=== PATIENT | male | born 1990 | race Hispanic/Latino ===

== ENCOUNTER 2017-04-15 13:43 | Emergency (ER) | payer OTHER ==
[~2017-04-15 13:43] MED LIST: BENTYL10 M1 PO
== END 2017-04-15 14:30 | disposition admitted as inpatient to this hospital (09) ==
LOC: ERH 13:43
DX: S81.811A Laceration without foreign body, right lower leg, initial encounter (principal)

== ENCOUNTER 2018-07-16 14:02 | Inpatient (IN) | payer OTHER ==
[~2018-07-16] VITALS: Ht 167.6 cm; Wt 64.0 kg
--- NOTE | 2018-07-16 14:51 | ED GENERAL ADULT ---
History of Present Illness General Chief Complaint: General Adult Stated Complaint: +ND, -V, WEAKNESS X 2DAYS Source: patient, old records, friend Exam Limitations: no limitations Vital Signs & Intake/Output Vital Signs & Intake/Output Vital Signs Date Time Temp Pulse Resp B/P B/P Pulse O2 O2 Flow FiO2 Mean Ox Delivery Rate 07/16 2153 99.4 87 20 144/89 98 Room Air 07/16 1905 98.7 89 18 134/73 98 Room Air 07/16 1631 98.9 99 18 128/79 99 Room Air Room Air 07/16 1408 99.9 104 17 128/91 96 Room Air ED Intake and Output 07/17 0000 07/16 1200 Intake Total 1465 Output Total Balance 1465 Intake, IV 1225 Intake, Oral 240 Number 1 Bowel Movements Patient 141 lb Weight Weight Reported by Patient Measurement Method Allergies Coded Allergies: lactose (LACTOSE INTOLERANT 07/16/18) Reconcile Medications No Known Home Medications Triage Note: PT TO ED WITH C/O GEN BODY ACHES, FEVERS/CHILLS, MID ABD PAIN, INTERMITTENT NAUSEA X 3 DAYS. Triage Nurses Notes Reviewed? yes HPI: This is a 27-year-old male with history of recurrent diarrhea of unclear etiology who presents to the emergency department with about 10 days of loose stool. Patient denies any bloody component today or mucus. He states that he has been previously worked up with endoscopy and colonoscopy with no clear diagnosis. He follows with Dr. Musa of gastroenterology. He denies any recent food changes or suspicious foods, travel, sick contacts. He has some epigastric discomfort, nausea with no vomiting. He has been using Pepto-Bismol at home with minimal relief. He has considered using Imodium but has not tried it yet. He has no history of belly surgery. He denies fever, chills, shortness of breath, chest pain, dysuria or frequency, flank pain. Patient states that about 4 weeks ago he was treated with a course of antibiotics for a "spider bite". He is not sure which antibiotic he was treated with. (Jaden DONOHUE,Jose Juan) Past History Travel History Traveled to [place] past 21 day No Medical History Any Pertinent Medical History? see below for history Neurological: NONE EENT: NONE Cardiovascular: NONE Respiratory: NONE Gastrointestinal: NONE Hepatic: NONE Renal: NONE Musculoskeletal: NONE Psychiatric: NONE Endocrine: NONE Blood Disorders: NONE Cancer(s): NONE TOE LASTER/Reproductive: NONE Surgical History Surgical History: non-contributory Psychosocial History What is your primary language Jamaican Tobacco Use: Never used Family History Hx Contributory? No (Jose Juan Stanley MD) Review of Systems Review of Systems Constitutional: Reports: no symptoms. EENTM: Reports: no symptoms. Respiratory: Reports: no symptoms. Cardiovascular: Reports: no symptoms. GI: Reports: see HPI. Genitourinary: Reports: no symptoms. Musculoskeletal: Reports: no symptoms. Skin: Reports: no symptoms. Neurological/Psychological: Reports: no symptoms. Hematologic/Endocrine: Reports: no symptoms. (Jose Juan Stanley MD) Physical Exam Physical Exam General Appearance: well developed/nourished, no apparent distress, alert, awake , comfortable, thin Comments: Well-appearing young man in no acute distress. HEENT exam within normal limits, cardiopulmonary exam within normal limits, abdominal exam significant only for mild tenderness to deep palpation in the epigastric region. Otherwise nondistended, nontender with normal bowel sounds. Rectal exam deferred. exam within normal limits. Legs and arms within normal limits with intact and non-tachycardic distal pulses. Core Measures ACS in differential dx? No CVA/TIA Diagnosis: No Sepsis Present: No Sepsis Focused Exam Completed? No (Jose Juan Stanley MD) Progress Differential Diagnoses I considered the following diagnoses in my evaluation of the patient: Clinically suspect IBS in this patient based on exam, history, and presentation. Also, very likely could be viral gastroenteritis. Very low suspicion for appendicitis in this patient given exam, and presentation. Could be Clostridium difficile given recent antibiotic use. Will send C. difficile study. Lower suspicion for Giardia or other parasitic infection, though will send stool cultures. Low suspicion for severe metabolic derangement or dehydration given exam and vital signs. Plan of Care: Orders Procedure Date/time Status Regular Diet 07/17 B Active CBC WITHOUT DIFFERENTIAL 07/17 600 Active BASIC ELECTROLYTES PLUS BUN&CR 07/17 600 Active Lab Add-on Test 07/17 UNK Active Weight 07/16 2028 Complete Vital Signs 07/16 2028 Complete Teach/Educate 07/16 2028 Active Pain Treatment and Response 07/16 2028 Active Nutritional Intake, Monitor 07/16 2028 Active Isolation 07/16 2028 Active Intake & Output 07/16 2028 Complete Patient Care Conference 07/16 2028 Active Activity/Ambulation 07/16 2028 Active Pathway - chart 07/16 1956 Active House Staff 07/16 1956 Active Patient Data 07/16 1956 Active Code Status 07/16 1956 Active Patient Data 07/16 1843 Active Admit to inpatient 07/16 1819 Active Vital Signs 07/16 1819 Active Code Status 07/16 1819 Complete CULTURE,STOOL 07/16 1549 Active OVA AND PARASITE ANTIGENS 07/16 1549 Active C.DIFFICILE 07/16 1549 Active LIPASE 07/16 1549 Complete COMPREHENSIVE METABOLIC PANEL 07/16 1549 Complete CBC WITHOUT DIFFERENTIAL 07/16 1549 Complete Intake & Output 07/16 1519 Active VTE Mechanical Prophylaxis 07/16 UNK Active Vital Signs 07/16 UNK Complete Activity/Ambulation 07/16 UNK Active Current Medications Sig/Brad Start time Last Medication Dose Stop Time Status Admin Enoxaparin Sodium 40 MG DAILY 07/17 0900 AC (Lovenox) Acetaminophen 650 MG Q6P PRN 07/16 2000 AC (Tylenol) Ondansetron HCl 4 MG Q6P PRN 07/16 2000 AC (Zofran) Oxycodone/ 2 TAB Q6P PRN 07/16 2000 AC Acetaminophen (Percocet) Sodium Chloride 1,000 ML Q13H 07/16 2000 AC 07/16 (Normal Saline 0.9%) 07/17 Laboratory Tests 07/16/18 1554: Anion Gap 11, Estimated GFR > 60, BUN/Creatinine Ratio 11.1, Glucose 89, Calcium 9.5, Total Bilirubin 0.6, AST 26, ALT 32, Alkaline Phosphatase 64, Total Protein 8.0, Albumin 4.8, Globulin 3.2, Albumin/Globulin Ratio 1.5, Lipase 65, CBC w Diff MAN DIFF ORDERED, RBC 4.92, MCV 87.3, MCH 29.7, MCHC 34.0, RDW 12.1, MPV 9.6, Gran % 23.6 L, Lymphocytes % 31.7, Monocytes % 43.1 H, Eosinophils % 1.1, Basophils % 0.5, Absolute Granulocytes 0.4 L, Segmented Neutrophils 23 L, Band Neutrophils 3, Absolute Lymphocytes 0.5 L, Lymphocytes 40, Monocytes 31 H, Absolute Monocytes 0.7 H, Eosinophils 3, Absolute Eosinophils 0, Absolute Basophils 0, Platelet Estimate VERIFIED BY SMEAR, Normocytic RBCs VERIFIED, Normochromic RBCs VERIFIED, Fld Total RBCs Counted 100 Microbiology 07/16 1739 STOOL: Cryptosporidium Antigen - RECD 07/16 1739 STOOL: Giardia Antigen (AIDEE) - RECD 07/16 170 STOOL: Clostridium difficile Toxin A & B - RECD 07/16 1705 STOOL: Stool Culture - RECD Plan for CMP, CVC, lipase, stool studies, IV fluids, Zofran, p.o. challenge, likely discharge home with plan to follow-up with Dr. Musa. Labs reveal normal chemistry panel but a very low ANC, less than 500. Patient has no known risk factors for immunosuppression. Could be shigellosis. Lower suspicion for Anaplasma. Given degree of neutropenia, will place on neutropenic precautions, admit for further workup. Patient remains hemodynamically stable while in the emergency department. Abdominal exam remains benign. Initial ED EKG: none (Jose Juan Stanley MD) Departure Departure Time of Disposition: 1823 Disposition: STILL A PATIENT Condition: Stable Clinical Impression Primary Impression: Neutropenia Secondary Impressions: Diarrhea Referrals: Rosa Wallis APRN (PCP/Family) Departure Forms: Customer Survey General Discharge Information Prescriptions: Current Visit Scripts No Known Home Medications Admission Note Spoke With: Wes Gordon MD Documentation of Exam: Documentation of any treatments & extenuating circumstances including Concerns Regarding Discharge (functional status, medication knowledge or non-compliance, living conditions, etc.) that warrant an admission rather than observation: Repeat CBC, neutropenic precautions, stool studies, close monitoring. Possible IV antibiotics. (Jose Juan Stanley MD) Resident Co-Sign Statement Statement: ED Attending supervision documentation- I saw and evaluated the patient. I have also reviewed all the pertinent lab results and diagnostic results. I agree with the findings and the plan of care as documented in the Resident's documentation. x I have reviewed the ED Record and agree with the Resident's documentation. [] Additions or exceptions (if any) to the Resident's note and plan are summarized below: [] (Juancarlos Christensen MD) Critical Care Note Critical Care Note Critical Care Time: non-applicable (Jose Juan Stanley MD)
[2018-07-16 16:03] LABS: ABSOLUTE BASOPHIL COUNT 0 /CUMM (0.0-0.2); ABSOLUTE EOSINOPHIL COUNT 0 /CUMM (0.0-0.7); ABSOLUTE GRANULOCYTE CT 0.4 /CUMM (1.4-6.5); ABSOLUTE LYMPH COUNT 0.5 /CUMM (1.2-3.4); ABSOLUTE MONOCYTE COUNT 0.7 /CUMM (0.10-0.60); BASOPHIL % 0.5 % (0.0-2.0); EOSINOPHIL % 1.1 % (0-5); HEMATOCRIT 42.9 % (42-52); MEAN CORPUSCULAR HGB 29.7 PG (27.0-31.0); MEAN CORPUSCULAR VOLUME 87.3 FL (80.0-94.0); MEAN PLATELET VOLUME 9.6 FL (7.4-10.4); PLATELET COUNT 178 /CUMM (130-400); RBC DISTRIBUTION WIDTH 12.1 % (11.5-14.5); RED BLOOD CELL CT 4.92 /CUMM (4.70-6.10); WHITE BLOOD CELL COUNT 1.7 /CUMM (4.8-10.8)
[2018-07-16 16:38] LABS: GRANULOCYTE % 23.6 % (42.2-75.2)
--- NOTE | 2018-07-16 19:56 | History & Physical ---
Kera Lock 07/16/181954: General Information and HPI MD Statement: I have seen and personally examined RAMON HONEYCUTT and documented this H&P. The patient is a 27 year old M who presented with a patient stated chief complaint of []. Source of Information: patient Exam Limitations: no limitations History of Present Illness: 27 year old male with PMH GI symptoms s/p endoscopy by Dr. Musa showing nonerosive gastritis in 2010 presenting with 10 day history of nausea and diarrhea. Patient denies any vomiting. He states the diarrhea started all of the sudden and has about 5-10 episodes of non bloody stool per day. He states over the past two days he has experienced increasing fatigue and decided to come to the hospital. He denies any sick contacts. Of note: 4 weeks ago he sustained a 'spider bite' resulting in right elbow swelling and erythema. He went to see his PCP and was given Keflex 500mg. He took this for about 2-3 days and then discontinued due to diarrhea onset and rash resolution. He states he was feeling well until about 10 days ago when the new sx appeared. He tried taking Pepto-bismol with minimal relief. Allergies/Medications Home Med list No Known Home Medications Past History Travel History Traveled to [place] past 21 day No Medical History Neurological: NONE EENT: NONE Cardiovascular: NONE Respiratory: NONE Gastrointestinal: NONE Hepatic: NONE Renal: NONE Musculoskeletal: NONE Psychiatric: NONE Endocrine: NONE Blood Disorders: NONE Cancer(s): NONE ASSISTANT SOFTBALL COACH/Reproductive: NONE Isolation History: Neutropenic precautions Surgical History Surgical History: non-contributory Past Family/Social History Psychosocial History Where do you live? Home Who Do You Live With? self Services at Home: None Smoking Status: Never Smoked ETOH Use: occasional use Illicit Drug Use: denies illicit drug use Review of Systems Review of Systems Constitutional: Reports: chills, weakness. Denies: diaphoresis, fever. EENTM: Reports: no symptoms. Cardiovascular: Reports: no symptoms. Respiratory: Reports: no symptoms. GI: Reports: bloating, diarrhea, nausea. Genitourinary: Reports: no symptoms. Musculoskeletal: Reports: no symptoms. Skin: Reports: no symptoms. Exam & Diagnostic Data Last 24 Hrs of Vital Signs/I&O Vital Signs Date Time Temp Pulse Resp B/P B/P Pulse O2 O2 Flow FiO2 Mean Ox Delivery Rate 07/16 2153 99.4 87 20 144/89 98 Room Air 07/16 1905 98.7 89 18 134/73 98 Room Air 07/16 1631 98.9 99 18 128/79 99 Room Air Room Air 07/16 1408 99.9 104 17 128/91 96 Room Air Intake & Output 07/17 0800 07/17 0000 07/16 1600 Intake Total 465 1000 Output Total Balance 465 1000 Intake, IV 225 1000 Intake, Oral 240 Number 1 Bowel Movements Patient 141 lb 142 lb Weight Weight Reported by Patient Reported by Patient Measurement Method Physical Exam General Appearance Alert, Oriented X3, Cooperative, No Acute Distress Skin No Rashes Skin Temp/Moisture Exam: Warm/Dry HEENT Atraumatic, PERRLA Neck Supple Cardiovascular Regular Rate, Normal S1, Normal S2, No Murmurs Lungs Clear to Auscultation Abdomen Normal Bowel Sounds, Soft, No Tenderness Extremities No Edema, Normal Pulses Assessment/Plan Assessment: 27 year old male with PMH GI symptoms s/p endoscopy by Dr. Musa showing nonerosive gastritis in 2010 presenting with 10 day history of nausea and diarrhea. Patient denies any vomiting. He states the diarrhea started all of the sudden and has about 5-10 episodes of non bloody stool per day. He states over the past two days he has experienced increasing fatigue and decided to come to the hospital. Work up in ED found patient to be neutropenic 1.7. Patient to be admitted to the general medicine service for further care of the following: Problem List: 1. Neutropenia 1.7 2. Diarrhea Admission Data: VS T99.9 P104 RR17 BP128/91 Sat96%RA Labs WBC 1.7 H/H 14.6/42.9 Plt 178 BUN/Cr 10/0.9 Received 1L NS in ED #Neutropenia-possible 2/2 tick borne illness as patient had unknown 'bite' to Right elbow with rash 4 weeks ago vs HIV infection -neutropenic precautions -tick panel -HIV -continue to monitor #Diarrhea-infectious vs viral -stool ova/parasite -C-diff antigen -IV fluid hydration DVT prophylaxis: Lovenox/ALPS/ambulation As Ranked By This Provider Problem List: 1. Diarrhea 2. Neutropenia Core Measures/Misc (08/15) Acute Coronary Syndrome ACS Diagnosis: No Congestive Heart Failure Congestive Heart Failure Diagnosis No Cerebrovascular Accident CVA/TIA Diagnosis: No VTE (View Protocol) VTE Risk Factors Acute Medical Illness No Mechanical VTE Prophylaxis d/t N/A MechProphylax Ordered No VTE Pharm Prophylaxis d/t NA PharmProphylax ordered Sepsis (View protocol) Sepsis Present: No If YES complete Sepsis Event Note If YES complete Sepsis Event Note Lalo Pinedo 07/17/18 0445: Core Measures/Misc (08/15) Sepsis (View protocol) If YES complete Sepsis Event Note If YES complete Sepsis Event Note Resident Review Statement Resident Statement: examined this patient, discussed with fashion buying internship, agreed with fashion buying internship, discussed with family, reviewed EMR data (avail), discussed with nursing , discussed with case mgmt, reviewed images, amended to note Other Findings: This is a 27-year-old male with past medical history significant for GI problems status post endoscopy and colonoscopy by Dr. Musa presenting to the hospital with 10 day history of diarrhea. Patient reports that he has GI issues in the past, follow Dr. Musa, status post EGD/COLONO, found to have nonerosive gastritis. Patient reports 10 day history of diarrhea, loose, watery, nonbloody 3-5 bowel movements per day. He denies any abdominal pain. However reports some discomfort. Denies nausea, vomiting. He denies sick contacts or travel history. Of note he had spider bite 4 weeks ago, he was given oral antibiotics Keflex. He tried taking Pepto-bismol with minimal relief. Denies any fever, chills, Alternating bowel movements, nausea, vomiting, abdominal pain, chest pain, palpitations, short of breath. Denies smoking, alcohol abuse, illicit drug abuse. -- VS T99.9 P104 RR17 BP128/91 Sat96%RA Labs WBC 1.7 H/H 14.6/42.9 Plt 178 BUN/Cr 10/0.9 Received 1L NS in ED - 1. Neutropenia Patient presented with ongoing diarrhea for 10 days. Denied any fever, chills. No recent tick bites. He was found to have WBC count 1.7, with absolute neutrophil count less than 500. He is immunocompetent. His possible causes of neutropenia includes rickettsial, bacterial infections, HIV. He does not take any medications or immunosuppressants at home that may cause neutropenia. No rheumatologic disorders were found. * ANC 400 * Admitted to [facility] * Neutropenic precautions * No source of infection was found so far * Monitored off from antibiotics * Follow-up Anaplasma * Follow-up HIV * Continue to monitor WBC count * Peripheral blood smear * Consider hematology consult 2. Diarrhea Most likely viral. C. difficile pending Follow-up stool cultures Follow-up HIV DVT prophylaxis subcu Lovenox Full code Regular diet Pain pathway ordered Evan DONOHUE,Jeffers 07/17/18 0653: General Information and HPI MD Statement: I have seen and personally examined RAMON HONEYCUTT and documented this H&P. The patient is a 27 year old M who presented with a patient stated chief complaint of []. Source of Information: patient Exam Limitations: no limitations Allergies/Medications Allergies: Coded Allergies: lactose (LACTOSE INTOLERANT 07/16/18) Past History Medical History Gastrointestinal: GERD, peptic ulcer disease Past Family/Social History Psychosocial History Smoking Status: Never Smoked ETOH Use: occasional use Illicit Drug Use: denies illicit drug use Review of Systems Review of Systems Constitutional: Reports: see HPI. Exam & Diagnostic Data Last 24 Hrs of Vital Signs/I&O Vital Signs Date Time Temp Pulse Resp B/P B/P Pulse O2 O2 Flow FiO2 Mean Ox Delivery Rate 07/17 0636 99.5 84 20 114/70 98 Room Air 07/16 2153 99.4 87 20 144/89 98 Room Air 07/16 1905 98.7 89 18 134/73 98 Room Air 07/16 1631 98.9 99 18 128/79 99 Room Air Room Air 07/16 1408 99.9 104 17 128/91 96 Room Air Intake & Output 07/17 0800 07/17 0000 07/16 1600 Intake Total 6177 838 0457 Output Total Balance 8491 672 9492 Intake, IV 453 897 5535 Intake, Oral 480 240 Number 5 1 Bowel Movements Patient 141 lb 142 lb Weight Weight Reported by Patient Reported by Patient Measurement Method Physical Exam General Appearance Alert, Oriented X3, Cooperative, No Acute Distress Skin No Rashes, No Breakdown, No Significant Lesion Skin Temp/Moisture Exam: Warm/Dry Sepsis Skin Exam (color): Normal for Ethnicity HEENT Atraumatic, PERRLA, EOMI Neck Supple Lymphatic Axillary nl, Cervical nl Cardiovascular Regular Rate, Normal S1, Normal S2, No Murmurs Lungs Clear to Auscultation, Normal Air Movement Abdomen Normal Bowel Sounds, Soft, No Tenderness Neurological Normal Speech Extremities No Edema, Normal Pulses Sepsis Peripheral Pulse Location: Dorsalis Pedis Sepsis Peripheral Pulse Exam: Normal Sepsis Cap Refill Exam: <2 Sec Last 24 Hrs of Labs/Francois: Laboratory Tests 07/16/18 1554: Anion Gap 11, Estimated GFR > 60, BUN/Creatinine Ratio 11.1, Glucose 89, Calcium 9.5, Total Bilirubin 0.6, AST 26, ALT 32, Alkaline Phosphatase 64, Total Protein 8.0, Albumin 4.8, Globulin 3.2, Albumin/Globulin Ratio 1.5, Lipase 65, CBC w Diff MAN DIFF ORDERED, RBC 4.92, MCV 87.3, MCH 29.7, MCHC 34.0, RDW 12.1, MPV 9.6, Gran % 23.6 L, Lymphocytes % 31.7, Monocytes % 43.1 H, Eosinophils % 1.1, Basophils % 0.5, Absolute Granulocytes 0.4 L, Segmented Neutrophils 23 L, Band Neutrophils 3, Absolute Lymphocytes 0.5 L, Lymphocytes 40, Monocytes 31 H, Absolute Monocytes 0.7 H, Eosinophils 3, Absolute Eosinophils 0, Absolute Basophils 0, Platelet Estimate VERIFIED BY SMEAR, Normocytic RBCs VERIFIED, Normochromic RBCs VERIFIED, Fld Total RBCs Counted 100, HIV 1&2 Ab Western Blot NONREACTIVE Microbiology 07/16 1739 STOOL: Cryptosporidium Antigen - RECD 07/16 173 STOOL: Giardia Antigen (FRANCOIS) - RECD 07/16 170 STOOL: Clostridium difficile Toxin A & B - RECD 07/16 170 STOOL: Stool Culture - RECD Core Measures/Misc (08/15) Sepsis (View protocol) If YES complete Sepsis Event Note If YES complete Sepsis Event Note Attending MD Review Statement Attending Statement Attending MD Statement: examined this patient, discuss w/resident/PA/MEAT STUFFER, agreed w/resident/PA/MEAT STUFFER, reviewed EMR data (avail), amended to note Attending Assessment/Plan: This patient is a 27-year-old male with a significant past medical history for persistent gastrointestinal issues status post endoscopy and colonoscopy by Dr. Musa presenting to the hospital with 10 day history of diarrhea. He reports a 10 day history of diarrhea, loose, watery, nonbloody stool 3-5 bowel movements per day. Upon evaluation in the emergency department he was found to be afebrile with vital signs stable, neutropenic 1.7 (ANC 0.4), chemistries normal, and negative HIV. The patient is admitted to [facility] for neutropenia, nausea, vomiting and abdominal pain. Rule out infectious cause of diarrhea and neutropenia including tickborne illness. Follow C. difficile and obtain GI consult. May need to consider hematology consult also. Full code.
[2018-07-16 21:53] VITALS: BP 144/89
[2018-07-17 06:36] VITALS: BP 114/70
[2018-07-17 08:10] LABS: ABSOLUTE BASOPHIL COUNT 0 /CUMM (0.0-0.2); ABSOLUTE EOSINOPHIL COUNT 0.1 /CUMM (0.0-0.7); ABSOLUTE GRANULOCYTE CT 0.5 /CUMM (1.4-6.5); ABSOLUTE LYMPH COUNT 0.8 /CUMM (1.2-3.4); MEAN CORPUSCULAR HGB 30.1 PG (27.0-31.0); MEAN CORPUSCULAR HGB CONC 34.5 G/DL (33.0-37.0)
[2018-07-17 08:30] LABS: ABSOLUTE MONOCYTE COUNT 1.3 /CUMM (0.10-0.60); BASOPHIL % 0.7 % (0.0-2.0); EOSINOPHIL % 3.3 % (0-5); GRANULOCYTE % 18.4 % (42.2-75.2); HEMATOCRIT 39.4 % (42-52); MEAN CORPUSCULAR VOLUME 87.2 FL (80.0-94.0); MEAN PLATELET VOLUME 10.6 FL (7.4-10.4); PLATELET COUNT 170 /CUMM (130-400); RED BLOOD CELL CT 4.52 /CUMM (4.70-6.10)
[2018-07-17 08:32] LABS: WHITE BLOOD CELL COUNT 2.6 /CUMM (4.8-10.8)
--- NOTE | 2018-07-17 08:37 | PN- Housestaff ---
Tim Mullen 07/17/18 0837: Subjective Follow-up For: Neutropenia 1.7 Diarrhea Subjective: I visited the patient today and examined him. He was sitting in his bed, alert and oriented 3. No acute distress. He states that he had diarrhea every 1-2 hours, nonbloody, based on the report from the nurse it was positive guiac. He denies any fever. No reports or complaints of lightheadedness, dizziness, chest pain, shortness of breath, abdominal pain, chills, fever, or sweating. Review of Systems Constitutional: Reports: see HPI. Objective Last 24 Hrs of Vital Signs/I&O Vital Signs Date Time Temp Pulse Resp B/P B/P Pulse O2 O2 Flow FiO2 Mean Ox Delivery Rate 07/17 0636 99.5 84 20 114/70 98 Room Air 07/16 2153 99.4 87 20 144/89 98 Room Air 07/16 1905 98.7 89 18 134/73 98 Room Air 07/16 1631 98.9 99 18 128/79 99 Room Air Room Air 07/16 1408 99.9 104 17 128/91 96 Room Air Intake & Output 07/17 1600 07/17 0800 07/17 0000 Intake Total 1080 465 Output Total Balance 1080 465 Intake, IV 600 225 Intake, Oral 480 240 Number 5 1 Bowel Movements Patient 141 lb Weight Weight Reported by Patient Measurement Method Physical Exam General Appearance: Alert, Oriented X3, Cooperative, No Acute Distress Skin: white discolorations on his abdomen, old Skin Temp/Moisture Exam: Warm/Dry Sepsis Skin Exam (color): Normal for Ethnicity HEENT: Atraumatic, PERRLA Neck: Supple, No JVD Cardiovascular: Regular Rate, Normal S1, Normal S2, No Murmurs Lungs: Clear to Auscultation, Normal Air Movement Abdomen: Normal Bowel Sounds, Soft, No Tenderness Neurological: Normal Gait, Normal Speech, Strength at 5/5 X4 Ext, Sensation Intact Extremities: No Clubbing, No Cyanosis, No Edema, Normal Pulses, No Tenderness/ Swelling Vascular: Normal Pulses, Pulses Symmetrical Assessment/Plan Assessment: 27 year old male with PMH GI symptoms s/p endoscopy by Dr. Musa showing nonerosive gastritis in 2010 presenting with 10 day history of nausea and diarrhea. Patient denies any vomiting. He states the diarrhea started all of the sudden and has about 5-10 episodes of non bloody stool per day. He states over the past two days he has experienced increasing fatigue and decided to come to the hospital. Work up in ED found patient to be neutropenic 1.7. Neutropenia: possible secondary to tick borne illness as patient had unknown ' bite' to Right elbow with rash 4 weeks ago vs HIV infection Plan: neutropenic precautions, tick panel, HIV, continue to monitor Diarrhea: infectious vs viral Plan: stool ova/parasite, C-diff antigen, IV fluid hydration Problem List: 1. Diarrhea 2. Neutropenia Pain Ratin Pain Location: Not applicable Pain Goal: Remain pain free Pain Plan: Not applicable Tomorrow's Labs & Rationales: As indicated ChantellJefferyramy 07/17/18 1645: Attending MD Review Statement Attending Statement Attending MD Statement: examined this patient, discuss w/resident/PA/GARAGE DOOR HANGER, agreed w/resident/PA/GARAGE DOOR HANGER, discussed with family, reviewed EMR data (avail) Attending Assessment/Plan: Neutropenia with monocytosis- pt gives h/o diarrhea over the last few days and says he has been havind mucoid stools and some diarrhea since his teenage years for about a week every month. pt seen by GI in past with negative workup. pt ? h /o tick bite , does not go hiking but has dog and seen ticks on dog. denies any iv drug use . on exam noted no LAP and no splenomegaly. non tender abdomen. HIV negative. tick panel ordered. await that and also ordered EBV. Leukopenia improved with wbc upto 2.6 today am. hold off on abx for now. will f/u on results and treat accordingly. could be viral too. d/w pt and pts family at bedside the care plan.
[2018-07-17 14:09] VITALS: BP 124/65
[2018-07-17 22:33] VITALS: BP 103/70
[2018-07-18 06:00] VITALS: BP 122/68
--- NOTE | 2018-07-18 06:47 | PN- Housestaff ---
Tim Mullen 07/18/18 0646: Subjective Follow-up For: Neutropenia 1.7 Diarrhea Review of Systems Constitutional: Reports: see HPI. Objective Last 24 Hrs of Vital Signs/I&O Vital Signs Date Time Temp Pulse Resp B/P B/P Pulse O2 O2 Flow FiO2 Mean Ox Delivery Rate 07/18 1600 98.6 70 18 118/70 98 Room Air 07/18 0600 99.1 60 18 122/68 98 Room Air 07/17 2233 97.9 58 20 103/70 98 Room Air Intake & Output 07/18 1600 07/18 0800 07/18 0000 Intake Total 740 480 Output Total Balance 740 480 Intake, Oral 740 480 Number 0 2 Bowel Movements Physical Exam General Appearance: Alert, Oriented X3, Cooperative, No Acute Distress Skin: No Rashes, No Breakdown Cardiovascular: Regular Rate, Normal S1, Normal S2 Lungs: Clear to Auscultation, Normal Air Movement Abdomen: Normal Bowel Sounds, Soft, No Tenderness Assessment/Plan Assessment: 27 year old male with PMH GI symptoms s/p endoscopy by Dr. Musa showing nonerosive gastritis in 2010 presenting with 10 day history of nausea and diarrhea. Patient denies any vomiting. He states the diarrhea started all of the sudden and has about 5-10 episodes of non bloody stool per day. He states over the past two days he has experienced increasing fatigue and decided to come to the hospital. Work up in ED found patient to be neutropenic 1.7. He has frequent [facility]. Neutropenia: possible secondary to tick borne illness as patient had unknown ' bite' to Right elbow with rash 4 weeks ago vs HIV infection, we have to rule out infections that can cause neutropenia including Shaggy-Matos virus, HIV-ruled out, anaplasmosis, HTLV-not common in this area, parvovirus, Babesia, A. phagocytophilum,. Blood culture was negative after 1 day. WBC: 1.7---2.6---2.8 ANC: 0.4---0.5---0.3 Plan: neutropenic precautions, tick panel, HIV-ruled out, continue to monitor Diarrhea: infectious vs viral, we consulted GI. Plan: stool ova/parasite, C-diff antigen was negative, sent for PCO, IV fluid hydration Problem List: 1. Neutropenia 2. Diarrhea Pain Ratin Pain Location: ABDOMEN Pain Goal: Pain 4 or less Pain Plan: PERCOCET Tomorrow's Labs & Rationales: CBC Misael Hope MD 07/18/18 2243: Attending MD Review Statement Attending Statement Attending MD Statement: examined this patient, discuss w/resident/PA/DEATH CLAIM EXAMINER, agreed w/resident/PA/DEATH CLAIM EXAMINER, discussed with family, reviewed EMR data (avail), discussed with nursing, discussed with case mgmt, amended to note Attending Assessment/Plan: The patient was seen and discussed with house staff, nursing, and case management. GI input appreciated. GI symptoms improved, however neutropenia persists. Await hematology input.
--- NOTE | 2018-07-18 08:27 | PN- Student ---
Subjective Subjective: Today, pt seen and examined at bedside. He is resting comfortably and reports no acute events over night. He slept well, only having diarrhea 2-3x. Pt denies hematochezia. Nurse yesterday reported guaic + stool though. Pt reports 7/10 epigastric pain this morning and reduced appetite. Pt denies chest pain, SOB, general abdominal pain, weakness, fatigue, headache, dizziness. Objective Objective: Vital Signs Date Time Temp Pulse Resp B/P B/P Pulse O2 O2 Flow FiO2 Mean Ox Delivery Rate 07/18 0600 99.1 60 18 122/68 98 Room Air 07/17 2233 97.9 58 20 103/70 98 Room Air 07/17 1409 98.8 71 20 124/65 98 Room Air Intake & Output 07/18 1600 07/18 0800 07/18 0000 Intake Total 480 Output Total Balance 480 Intake, Oral 480 Number 2 Bowel Movements Physical Exam Gen - NAD, comfortable Psych - appropriately anxious Neuro - AOx4 HEENT - PERRLA, anicteric sclera, MMM, no LAD CV - RRR no MRG Pulm - CTA BL Abd - +BS, soft, nondistended, scaphoid, tender to light palpation in the epigastric region, no hepatosplenomegaly Ext - warm and well perfused, radial and PT/DP pulses 2+ BL, +patellar reflexes symmetrical Skin - no rashes or lesions appreciated Results Results: Laboratory Tests 07/18/18 0725: CBC w Diff MAN DIFF ORDERED, RBC 4.63 L, MCV 87.1, MCH 29.7, MCHC 34.2, RDW 11.8, MPV 10.3, Gran % 12.7 L, Lymphocytes % 36.0, Monocytes % 39.9 H, Eosinophils % 10.5 H, Basophils % 0.9, Absolute Granulocytes 0.3 L, Segmented Neutrophils Pending, Band Neutrophils Pending, Absolute Lymphocytes 1.0 L, Lymphocytes Pending, Monocytes Pending, Absolute Monocytes 1.1 H, Eosinophils Pending, Absolute Eosinophils 0.3, Basophils Pending, Absolute Basophils 0, Metamyelocytes Pending 07/17/18 1208: Lyme Disease Antibody Pending 07/17/18 1208: Babesia microti DNA PCR Pending, EBV Capsid Ag IgG Ab Pending, EBV Capsid Ag IgM Ab Pending, EBV Nuclear Ag IgG Ab Pending, EBV Interpretation Pending 07/17/18 0612: Anion Gap 11, Estimated GFR > 60, BUN/Creatinine Ratio 6.7 L, CBC w Diff MAN DIFF ORDERED, RBC 4.52 L, MCV 87.2, MCH 30.1, MCHC 34.5, RDW 12.0, MPV 10.6 H, Gran % 18.4 L, Lymphocytes % 29.4, Monocytes % 48.2 H, Eosinophils % 3.3, Basophils % 0.7, Absolute Granulocytes 0.5 L, Absolute Lymphocytes 0.8 L, Absolute Monocytes 1.3 H, Absolute Eosinophils 0.1, Absolute Basophils 0, Platelet Estimate ADEQUATE, Normocytic RBCs VERIFIED, Normochromic RBCs VERIFIED , A. phagocytophilum IgG Pending, A. phagocytophilum IgM Pending, Anaplasma Comment Pending, A.phagocytophilum Intrp Pending 07/16/18 1554: Anion Gap 11, Estimated GFR > 60, BUN/Creatinine Ratio 11.1, Glucose 89, Calcium 9.5, Total Bilirubin 0.6, AST 26, ALT 32, Alkaline Phosphatase 64, Total Protein 8.0, Albumin 4.8, Globulin 3.2, Albumin/Globulin Ratio 1.5, Lipase 65, CBC w Diff MAN DIFF ORDERED, RBC 4.92, MCV 87.3, MCH 29.7, MCHC 34.0, RDW 12.1, MPV 9.6, Gran % 23.6 L, Lymphocytes % 31.7, Monocytes % 43.1 H, Eosinophils % 1.1, Basophils % 0.5, Absolute Granulocytes 0.4 L, Segmented Neutrophils 23 L, Band Neutrophils 3, Absolute Lymphocytes 0.5 L, Lymphocytes 40, Monocytes 31 H, Absolute Monocytes 0.7 H, Eosinophils 3, Absolute Eosinophils 0, Absolute Basophils 0, Platelet Estimate VERIFIED BY SMEAR, Normocytic RBCs VERIFIED, Normochromic RBCs VERIFIED, Fld Total RBCs Counted 100, HIV 1&2 Ab Western Blot NONREACTIVE Microbiology 07/17 1240 BLOOD: Blood Culture - RECD 07/17 1217 BLOOD: Blood Culture - RECD 07/16 173 STOOL: Cryptosporidium Antigen - RECD 07/16 173 STOOL: Giardia Antigen (AIDEE) - RECD 07/16 1705 STOOL: Clostridium difficile Toxin A & B - NEG 07/16 1705 STOOL: Stool Culture - RES - mized merissa after 2 days, neg for shiga toxin 1 and 2 Assessment/Plan Assessment: Mr. Cannon is a 27YO male of [place] decent who grew up in [place]. His PMH is significant for a diagnosis of latent TB for which he did not receive treatment followed by a negative PPD 3-4yrs ago when he started working at [employer]. He received all his childhood vaccines, has an innocent heart murmur, and takes many trips to [facility]. Fam hx is significant for hereditary spherocytosis and chronic H. pylori infections. Pt presented to the ED 2 days ago with 10 days of nausea and non-bloody, non- mucous diarrhea with 4/10 epigastric pain and increasing weakness. The pt has had these same symptoms intermittently for years and sees Dr. Musa who did an endoscopy and colonoscopy in 2010 which showed normal gastric, intestinal, and colonic mucosa. This time, the pt had been trying pepto-bismal with no relief. He did not take immodium. The pt reports taking a course of cephlex about 1mo ago for a "spider bite" on his R elbow which has completely resolved. The pt feels there is no correlation between the symptoms and taking the antibiotics. On admission, the pt was afebrile and vitally stable. All labs were WNL except WBC which was 1.7 with ANC of 0.4. He recieved 1000mL bolus of NS, percocet and acetaminophen for pain, zofran for nausea, and lovenox for DVT prophy (pt is refusing but is active). Today, WBC is 2.8 and ANC is 0.3. H/H stable. HIV neg. Preliminary results of smear: showed increased # of monocytes. Problem List/Plan 1. Severe Neutropenia Neutropenia is of unclear etiology at this time but we are pursuing viral causes at this time along with tick panel as pt has hx of "spider bite" 4wks ago and has exposure via his dog. Medications are possible, but as the pt has isolated neutropenia this is less likely than an infectious cause. Hematologic malignancy and autoimmune disease are other possibilties but are unlikely. - f/u tick panel - f/u EBV - heme consult has been placed, will await recommendations. 2. Diarrhea w/ epigastric pain Pt has hx of intermittent diarrhea similar to this episode which he has experienced over many years. The etiology is unclear but we are suspecting IBD and less likely an infectious cause. - f/u stool studies - GI consult has been placed, will await recommendations - improve pain control - continue IV fluid hydration Diet: Regular DVT Proph: Ambulation, pt refuses lovenox Code: Full
[2018-07-18 09:13] LABS: ABSOLUTE BASOPHIL COUNT 0 /CUMM (0.0-0.2); ABSOLUTE EOSINOPHIL COUNT 0.3 /CUMM (0.0-0.7); ABSOLUTE GRANULOCYTE CT 0.3 /CUMM (1.4-6.5); ABSOLUTE MONOCYTE COUNT 1.1 /CUMM (0.10-0.60); BASOPHIL % 0.9 % (0.0-2.0); EOSINOPHIL % 10.5 % (0-5); GRANULOCYTE % 12.7 % (42.2-75.2); HEMATOCRIT 40.3 % (42-52); MEAN CORPUSCULAR HGB 29.7 PG (27.0-31.0); MEAN CORPUSCULAR HGB CONC 34.2 G/DL (33.0-37.0); MEAN CORPUSCULAR VOLUME 87.1 FL (80.0-94.0); MEAN PLATELET VOLUME 10.3 FL (7.4-10.4); PLATELET COUNT 168 /CUMM (130-400); RBC DISTRIBUTION WIDTH 11.8 % (11.5-14.5); RED BLOOD CELL CT 4.63 /CUMM (4.70-6.10); WHITE BLOOD CELL COUNT 2.8 /CUMM (4.8-10.8)
[2018-07-18 16:00] VITALS: BP 118/70
[2018-07-18 20:56] VITALS: BP 112/80
--- NOTE | 2018-07-18 21:28 | Cons- Gastroenterology ---
General Information and HPI Consulting Request Date of Consult: 07/18/18 Requested By: Misael Hope MD Reason for Consult: 1. Diarrhea 2. Neutropenia Source of Information: patient Exam Limitations: no limitations History of Present Illness: Patient is a 27-year-old male with a past medical history of diarrhea. He underwent esophagogastroduodenoscopy by Dr. Flip Musa in 2010 for epigastric pain. He had nonerosive gastritis but EGD was otherwise unremarkable. He has had many years of intermittent nonbloody diarrhea associated with epigastric pain. He dates this to a trip to [facility] when he developed a travelers diarrhea for which he was treated with an antibiotic. After that he has had periodic episodes of diarrhea. He report reports that around 4 weeks ago he developed acute swelling of his right elbow with a vesicular type rash. He went to see his PCP and was given Keflex which she took for approximately 3 days and stopped when the swelling began to christina. He was told he may have had some kind of insect bite but does not remember having one. He denies any history of substance abuse or alcohol abuse. He has had no other arthritis or arthralgias. He has had no other skin rashes. Upon admission to [facility] he was found to be neutropenic. He also has eosinophilia. He has no family history of blood disorder, anemia, chronic pancreatitis, inflammatory bowel disease. He has no family history of cancer. presented to [facility] with a chief complaint of non-bloody diarrhea with mucus. He has diarrhea which he had had for 10 days prior to presentation. He had not had any fever, but had had chills during the day time. He had 5-10 bowel movements every 2 hours. He did have some bleeding from his hemorrhoids. He started taking OTC antidiarrheal medication on or so. He stated having abdominal cramping with the diarrhea. He did take ibuprofen for the cramping for 1 day. He has no nausea or vomiting. He states his girlfriend was also sick with similar symptoms. He is no longer having any diarrhea and denies any abdominal pain. Allergies/Medications Allergies: Coded Allergies: lactose (LACTOSE INTOLERANT 07/16/18) Home Med List: No Known Home Medications Current Medications: Current Medications Sig/Brad Start time Last Medication Dose Route Stop Time Status Admin Acetaminophen 650 MG Q6P PRN 07/16 2000 AC PO Enoxaparin Sodium 40 MG DAILY 07/17 09 AC SC Ondansetron HCl 4 MG Q6P PRN 07/16 2000 AC IV Oxycodone/ 2 TAB Q6P PRN 07/16 2000 AC 07/17 Acetaminophen PO 190 Past History Travel History Traveled to [place] past 21 day No Medical History Blood Transfusion Hx: No Neurological: NONE EENT: NONE Cardiovascular: NONE Respiratory: NONE Gastrointestinal: GERD, peptic ulcer disease Hepatic: NONE Renal: NONE Musculoskeletal: NONE Psychiatric: NONE Endocrine: NONE Blood Disorders: NONE Cancer(s): NONE BOOSTER PUMP OILER/Reproductive: NONE Surgical History Surgical History: non-contributory Psychosocial History Where Do You Live? Home Who Do You Live With? self Services at Home: None Smoking Status: Never Smoked ETOH Use: occasional use Illicit Drug Use: denies illicit drug use Review of Systems Review of Systems Constitutional: Denies: fever, malaise, weakness, unexplained weight loss. EENTM: Reports: no symptoms. Cardiovascular: Reports: no symptoms. Respiratory: Reports: no symptoms. GI: Reports: diarrhea. Denies: melena, nausea, bloody stool, vomiting. Genitourinary: Reports: no symptoms. Musculoskeletal: Reports: no symptoms. Skin: Reports: see HPI. Neurological/Psychological: Reports: no symptoms. Hematologic/Endocrine: Reports: see HPI. All Other Systems: Reviewed and Negative Exam & Diagnostic Data Vital Signs and I&O Vital Signs Date Time Temp Pulse Resp B/P B/P Pulse O2 O2 Flow FiO2 Mean Ox Delivery Rate 07/18 2056 98.9 66 16 112/80 99 Room Air 07/18 1600 98.6 70 18 118/70 98 Room Air 07/18 0600 99.1 60 18 122/68 98 Room Air 07/17 2233 97.9 58 20 103/70 98 Room Air Intake & Output 07/18 1600 07/18 0400 07/17 1600 07/17 0400 07/16 1600 07/16 0400 Intake Total 453 071 5565 465 1000 Output Total Balance 672 920 4541 465 1000 Intake, IV 654 979 7577 Intake, Oral 256 981 1103 240 Number 0 2 11 1 Bowel Movements Patient 141 lb 142 lb Weight Weight Reported by Patient Reported by Patient Measurement Method Physical Exam General Appearance: well developed/nourished, no apparent distress, comfortable Head: atraumatic, normal appearance Eyes: Bilateral: normal appearance. Ears, Nose, Throat: hearing grossly normal Neck: full range of motion Respiratory: lungs clear Cardiovascular: regular rate/rhythm Gastrointestinal: normal bowel sounds, soft, non-tender Back: normal inspection Extremities: normal inspection, no edema Neurologic/Psych: awake, alert, oriented x 3, normal mood/affect Cranial Nerves: cranial nerves II-XII grossly intact Skin: intact, normal color, warm/dry Results Pertinent Lab Results: Laboratory Tests 07/18 07/17 07/17 0725 1208 1208 Hematology CBC w Diff MAN DIFF ORDERED WBC (4.8 - 10.8 /CUMM) 2.8 L RBC (4.70 - 6.10 /CUMM) 4.63 L Hgb (14.0 - 18.0 G/DL) 13.8 L Hct (42 - 52 %) 40.3 L MCV (80.0 - 94.0 FL) 87.1 MCH (27.0 - 31.0 PG) 29.7 MCHC (33.0 - 37.0 G/DL) 34.2 RDW (11.5 - 14.5 %) 11.8 Plt Count (130 - 400 /CUMM) 168 MPV (7.4 - 10.4 FL) 10.3 Gran % (42.2 - 75.2 %) 12.7 L Lymphocytes % (20.5 - 51.1 %) 36.0 Monocytes % (1.7 - 9.3 %) 39.9 H Eosinophils % (0 - 5 %) 10.5 H Basophils % (0.0 - 2.0 %) 0.9 Absolute Granulocytes (1.4 - 6.5 /CUMM) 0.3 L Segmented Neutrophils (42.2 - 75.2 %) 6 L Band Neutrophils (0.0 - 5.0 %) 5 Absolute Lymphocytes (1.2 - 3.4 /CUMM) 1.0 L Lymphocytes (20.5 - 51.1 %) 36 Monocytes (1.7 - 9.3 %) 38 H Absolute Monocytes (0.10 - 0.60 /CUMM) 1.1 H Eosinophils (0 - 5.0 %) 13 H Absolute Eosinophils (0.0 - 0.7 /CUMM) 0.3 Basophils (0.0 - 2.0 %) 1 Absolute Basophils (0.0 - 0.2 /CUMM) 0 Metamyelocytes (0.0 - 1.0 %) 1 Platelet Estimate (ADEQUATE) VERIFIED BY SMEAR Normocytic RBCs VERIFIED Normochromic RBCs VERIFIED Serology Babesia microti DNA PCR Pending Lyme Disease Antibody (RATIO) 0.17 EBV Capsid Ag IgG Ab Pending EBV Capsid Ag IgM Ab Pending EBV Nuclear Ag IgG Ab Pending EBV Interpretation Pending 07/17 07/16 0612 1705 Chemistry Sodium (137 - 145 mmol/L) 139 Potassium (3.5 - 5.1 mmol/L) 3.7 Chloride (98 - 107 mmol/L) 105 Carbon Dioxide (22 - 30 mmol/L) 23 Anion Gap (5 - 16) 11 BUN (9 - 20 mg/dL) 6 L Creatinine (0.7 - 1.2 mg/dL) 0.9 Estimated GFR (>60 ml/min) > 60 BUN/Creatinine Ratio (7 - 25 %) 6.7 L Hematology CBC w Diff MAN DIFF ORDERED WBC (4.8 - 10.8 /CUMM) 2.6 L RBC (4.70 - 6.10 /CUMM) 4.52 L Hgb (14.0 - 18.0 G/DL) 13.6 L Hct (42 - 52 %) 39.4 L MCV (80.0 - 94.0 FL) 87.2 MCH (27.0 - 31.0 PG) 30.1 MCHC (33.0 - 37.0 G/DL) 34.5 RDW (11.5 - 14.5 %) 12.0 Plt Count (130 - 400 /CUMM) 170 MPV (7.4 - 10.4 FL) 10.6 H Gran % (42.2 - 75.2 %) 18.4 L Lymphocytes % (20.5 - 51.1 %) 29.4 Monocytes % (1.7 - 9.3 %) 48.2 H Eosinophils % (0 - 5 %) 3.3 Basophils % (0.0 - 2.0 %) 0.7 Absolute Granulocytes (1.4 - 6.5 /CUMM) 0.5 L Absolute Lymphocytes (1.2 - 3.4 /CUMM) 0.8 L Absolute Monocytes (0.10 - 0.60 /CUMM) 1.3 H Absolute Eosinophils (0.0 - 0.7 /CUMM) 0.1 Absolute Basophils (0.0 - 0.2 /CUMM) 0 Platelet Estimate (ADEQUATE) ADEQUATE Normocytic RBCs VERIFIED Normochromic RBCs VERIFIED Serology A. phagocytophilum IgG Pending A. phagocytophilum IgM Pending Anaplasma Comment Pending A.phagocytophilum Intrp Pending C. difficile Tox B Gene Pending 07/16 5221 Chemistry Sodium (137 - 145 mmol/L) 138 Potassium (3.5 - 5.1 mmol/L) 4.1 Chloride (98 - 107 mmol/L) 101 Carbon Dioxide (22 - 30 mmol/L) 25 Anion Gap (5 - 16) 11 BUN (9 - 20 mg/dL) 10 Creatinine (0.7 - 1.2 mg/dL) 0.9 Estimated GFR (>60 ml/min) > 60 BUN/Creatinine Ratio (7 - 25 %) 11.1 Glucose (65 - 99 mg/dL) 89 Calcium (8.4 - 10.2 mg/dL) 9.5 Total Bilirubin (0.2 - 1.3 mg/dL) 0.6 AST (17 - 59 U/L) 26 ALT (21 - 72 U/L) 32 Alkaline Phosphatase (< 127 U/L) 64 Total Protein (6.3 - 8.2 g/dL) 8.0 Albumin (3.5 - 5.0 g/dL) 4.8 Globulin (1.9 - 4.2 gm/dL) 3.2 Albumin/Globulin Ratio (1.1 - 2.2 %) 1.5 Lipase (23 - 300 U/L) 65 Hematology CBC w Diff MAN DIFF ORDERED WBC (4.8 - 10.8 /CUMM) 1.7 L RBC (4.70 - 6.10 /CUMM) 4.92 Hgb (14.0 - 18.0 G/DL) 14.6 Hct (42 - 52 %) 42.9 MCV (80.0 - 94.0 FL) 87.3 MCH (27.0 - 31.0 PG) 29.7 MCHC (33.0 - 37.0 G/DL) 34.0 RDW (11.5 - 14.5 %) 12.1 Plt Count (130 - 400 /CUMM) 178 MPV (7.4 - 10.4 FL) 9.6 Gran % (42.2 - 75.2 %) 23.6 L Lymphocytes % (20.5 - 51.1 %) 31.7 Monocytes % (1.7 - 9.3 %) 43.1 H Eosinophils % (0 - 5 %) 1.1 Basophils % (0.0 - 2.0 %) 0.5 Absolute Granulocytes (1.4 - 6.5 /CUMM) 0.4 L Segmented Neutrophils (42.2 - 75.2 %) 23 L Band Neutrophils (0.0 - 5.0 %) 3 Absolute Lymphocytes (1.2 - 3.4 /CUMM) 0.5 L Lymphocytes (20.5 - 51.1 %) 40 Monocytes (1.7 - 9.3 %) 31 H Absolute Monocytes (0.10 - 0.60 /CUMM) 0.7 H Eosinophils (0 - 5.0 %) 3 Absolute Eosinophils (0.0 - 0.7 /CUMM) 0 Absolute Basophils (0.0 - 0.2 /CUMM) 0 Platelet Estimate (ADEQUATE) VERIFIED BY SMEAR Normocytic RBCs VERIFIED Normochromic RBCs VERIFIED Other Body Source Fld Total RBCs Counted (%) 100 Serology HIV 1&2 Ab Western Blot (NONREACTIVE) NONREACTIVE Assessment/Plan Assessment/Recommendations: ASSESSMENT: 1. Neutropenia --I believe his neutropenia may be due to the Keflex. Although it is a little far out for him still to be neutropenic. It may also be related to a viral syndrome and perhaps to a tick-born illness. Given eosinophilia, strong cnsideration should be given to a neoplastic process as well as underlying connective tissue disease given his initial presentation with swelling of his right elbow. 2. Diarrhea --his diarrhea appears to be resolving. I believe the 2 may not necessarily be related. However he may have a postinfectious irritable bowel syndrome. 3. Eosinophilia -- work up as above. RECOMMENDATIONS: 1. Hematology consult 2. Check CRP, MILA with reflex 3. Check stool for lactoferrin, fecal fat, pancreatic elastase, O&P 4. Rule out leishmaniasis, strongyloides 5. Repeat CBC and diff. Follow eosinophils. Consult Acknowledgment - Thank you for your consult request.
--- NOTE | 2018-07-19 06:31 | PN- Housestaff ---
Tim Mullen 07/19/18 0629: Subjective Follow-up For: Neutropenia Diarrhea Subjective: I visited the patient this morning, he was coming out of the bathroom when I entered the room, alert and oriented 3, in no acute distress. He reported that he has abdominal cramps every 2-3 hours after which he has to go to the bathroom. He does not report any fever, chills, sweating. He denies chest pain, dizziness, lightheadedness, vertigo, nausea, vomiting, shortness of breath. I have asked him to bring the previous medical workups in, to see if his neutropenia is new onset or not. Review of Systems Constitutional: Reports: see HPI. Objective Last 24 Hrs of Vital Signs/I&O Vital Signs Date Time Temp Pulse Resp B/P B/P Pulse O2 O2 Flow FiO2 Mean Ox Delivery Rate 07/18 2056 98.9 66 16 112/80 99 Room Air 07/18 1600 98.6 70 18 118/70 98 Room Air Intake & Output 07/19 0800 07/19 0000 07/18 1600 Intake Total 210 250 740 Output Total Balance 210 250 740 Intake, IV 10 10 Intake, Oral 200 240 740 Number 0 Bowel Movements Physical Exam General Appearance: Alert, Oriented X3, Cooperative, No Acute Distress Skin: No Rashes Skin Temp/Moisture Exam: Warm/Dry HEENT: Atraumatic Cardiovascular: Regular Rate, Normal S1, Normal S2 Lungs: Clear to Auscultation, Normal Air Movement Abdomen: Normal Bowel Sounds, Soft, No Tenderness Neurological: Normal Gait, Normal Speech, Normal Tone Extremities: No Clubbing, No Cyanosis, No Edema Vascular: Normal Pulses, Pulses Symmetrical Assessment/Plan Assessment: 27 year old male with PMH GI symptoms s/p endoscopy by Dr. Musa showing nonerosive gastritis in 2010 presenting with 10 day history of nausea and diarrhea. Patient denies any vomiting. He states the diarrhea started all of the sudden and has about 5-10 episodes of non bloody stool per day. He states over the past two days he has experienced increasing fatigue and decided to come to the hospital. Work up in ED found patient to be neutropenic 1.7. He has frequent travels to [facility]. His WBC count right this morning to 3.2, with ANC of 0.6. Neutropenia: possible secondary to tick borne illness as patient had unknown ' bite' to Right elbow with rash 4 weeks ago vs HIV infection, we have to rule out infections that can cause neutropenia including Shaggy-Matos virus, HIV-ruled out, anaplasmosis, HTLV-not common in this area, parvovirus, Babesia, A. phagocytophilum,. Blood culture was negative after 1 day. WBC: 1.7---2.6---2.8---3.2 ANC: 0.4---0.5---0.3---0.6 Plan: neutropenic precautions, tick panel, HIV-ruled out, continue to monitor, hepatitis panel, folic acid, vitamin B12, hematology consult appreciated. Diarrhea: infectious vs viral, strongyloidosis, Leishmaniosis, GI consult appreciated. Plan: stool ova/parasite, C-diff antigen was negative, sent for PCR, IV fluid hydration Problem List: 1. Neutropenia 2. Diarrhea Pain Ratin Pain Location: Abdomen Pain Goal: Pain 4 or less Pain Plan: Percocet Tomorrow's Labs & Rationales: As indicated Misael Hope MD 07/19/18 1636: Attending MD Review Statement Attending Statement Attending MD Statement: examined this patient, discuss w/resident/PA/MORNING BABYSITTER, agreed w/resident/PA/MORNING BABYSITTER, discussed with family, reviewed EMR data (avail), discussed with nursing, discussed with case mgmt, amended to note Attending Assessment/Plan: The patient was seen and discussed with house staff, nursing, case management and family. The patient brought in records from [facility] when he had a colonoscopy and labs. Labwork had included ANCA, hep panel, etc. which were negative. Biopsy from colonoscopy was read as c/w Crohn's disease. Still with some loose BM's. Await GI input. WBC increased today. Appreciate hematology input (B12 & folate drawn). Consider discharge with OP follow-up once seen by GI.
[2018-07-19 06:45] VITALS: BP 102/60
--- NOTE | 2018-07-19 06:49 | Cons- Hematology ---
General Information and HPI Consulting Request Date of Consult: 07/19/18 Requested By: Misael Hope MD Reason for Consult: Neutropenia Source of Information: patient, old records Exam Limitations: no limitations History of Present Illness: Mr. Cannon is a 27-year-old male with history of gastritis who presented to the hospital with diarrhea. He has diarrhea for 10 days prior to presentation. He denies any fever. He does have some chills during the day time. He has 5-10 bowel movements a day. Diarrhea is every 2 hours. Diarrhea is mucus like previously and is now more formed. He did have some bleeding from his hemorrhoids. He has no other bleeding. He started taking OTC antidiarrheal medication on or so. He stated having abdominal cramping with the diarrhea. He did take ibuprofen for the cramping for 1 day. He has no nausea or vomiting. The abdominal pain has become more burning. The pain makes it difficult for him to breath at times. He states his girlfriend was also sick with similar symptoms. He did have an EGD with Dr. Musa in 2010 for epigastric pain. He was noted to have nonerosive gastritis. Of note, he did have right elbow swelling 4 weeks ago and was treated with Keflex for about 3 days. It was attributed to potentially be from an insect bite. Swelling has improved. He has not taken any other medication. He does take supplements regularly. He takes beef protein for his workout. He has changed his diet to be more vegan. He has been avoiding red meat. On presentation, his WBC was 1700 with ANC of 400. His hemoglobin and hematocrit were normal. Platelet was normal. Kidney function and liver function were normal. He has been afebrile. He has persistent diarrhea. His WBC has slowly improved to 2800 on 07/18/2018. Allergies/Medications Allergies: Coded Allergies: lactose (LACTOSE INTOLERANT 07/16/18) Home Med List: No Known Home Medications Current Medications: Current Medications Sig/Brad Start time Last Medication Dose Route Stop Time Status Admin Acetaminophen 650 MG Q6P PRN 07/16 2000 AC PO Enoxaparin Sodium 40 MG DAILY 07/17 0900 AC SC Ondansetron HCl 4 MG Q6P PRN 07/16 2000 AC IV Oxycodone/ 2 TAB Q6P PRN 07/16 2000 AC 07/17 Acetaminophen PO 1909 Patient Medication 1 ED ONE ONE 07/18 0900 [facility] ED 07/18 0901 Review of Systems Review of Systems Constitutional: Reports: chills, weakness. Denies: fever, malaise. EENTM: Denies: blurred vision. Cardiovascular: Denies: chest pain, palpitations, peripheral edema. Respiratory: Reports: short of breath. Denies: cough, hemoptysis, sputum production. GI: Reports: abdominal pain, diarrhea, changes in stool. Denies: distention, bowel incontinence, nausea, bloody stool, vomiting. Genitourinary: Denies: dysuria. Musculoskeletal: Denies: back pain, joint pain, joint swelling. Skin: Denies: rash. Neurological/Psychological: Denies: confusion. Hematologic/Endocrine: Denies: bruising, bleeding. Immunologic/Allergic: Denies: lymphadenopathy. All Other Systems: Reviewed and Negative Past History Travel History Traveled to [place] past 21 day No Medical History Blood Transfusion Hx: No Neurological: NONE EENT: NONE Cardiovascular: NONE Respiratory: NONE Gastrointestinal: GERD, peptic ulcer disease Hepatic: NONE Renal: NONE Musculoskeletal: NONE Psychiatric: NONE Endocrine: NONE Blood Disorders: NONE Cancer(s): NONE AREA COORDINATOR/Reproductive: NONE Surgical History Surgical History: non-contributory Psychosocial History Where Do You Live? Home Who Do You Live With? self Services at Home: None Smoking Status: Never Smoked ETOH Use: occasional use Illicit Drug Use: denies illicit drug use Exam & Diagnostic Data Vital Signs and I&O Vital Signs Date Time Temp Pulse Resp B/P B/P Pulse O2 O2 Flow FiO2 Mean Ox Delivery Rate 07/18 2056 98.9 66 16 112/80 99 Room Air 07/18 1600 98.6 70 18 118/70 98 Room Air Intake & Output 07/19 0800 07/19 0000 07/18 1600 Intake Total 320 250 740 Output Total Balance 320 250 740 Intake, IV 20 10 Intake, Oral 300 240 740 Number 0 Bowel Movements Physical Exam General Appearance: well developed/nourished, no apparent distress, alert, awake , comfortable Head: atraumatic, normal appearance Eyes: Bilateral: PERRL. Ears, Nose, Throat: normal pharynx, hearing grossly normal Neck: normal inspection, supple Respiratory: normal breath sounds, chest non-tender, no respiratory distress, lungs clear Cardiovascular: regular rate/rhythm Gastrointestinal: normal bowel sounds, soft, non-tender, no organomegaly Back: normal inspection Extremities: no edema Neurologic/Psych: awake, alert, oriented x 3 Cranial Nerves: normal hearing, normal speech Skin: warm/dry Lymphatic: no lymphadenopathy Last 48 Hours of Lab Results: Laboratory Tests 07/19 07/18 07/17 0605 0725 1208 Hematology CBC w Diff Pending MAN DIFF ORDERED WBC (4.8 - 10.8 /CUMM) Pending 2.8 L RBC (4.70 - 6.10 /CUMM) Pending 4.63 L Hgb (14.0 - 18.0 G/DL) Pending 13.8 L Hct (42 - 52 %) Pending 40.3 L MCV (80.0 - 94.0 FL) Pending 87.1 MCH (27.0 - 31.0 PG) Pending 29.7 MCHC (33.0 - 37.0 G/DL) Pending 34.2 RDW (11.5 - 14.5 %) Pending 11.8 Plt Count (130 - 400 /CUMM) Pending 168 MPV (7.4 - 10.4 FL) Pending 10.3 Gran % (42.2 - 75.2 %) 12.7 L Lymphocytes % (20.5 - 51.1 %) 36.0 Monocytes % (1.7 - 9.3 %) 39.9 H Eosinophils % (0 - 5 %) 10.5 H Basophils % (0.0 - 2.0 %) 0.9 Absolute Granulocytes (1.4 - 6.5 /CUMM) 0.3 L Segmented Neutrophils (42.2 - 75.2 %) 6 L Band Neutrophils (0.0 - 5.0 %) 5 Absolute Lymphocytes (1.2 - 3.4 /CUMM) 1.0 L Lymphocytes (20.5 - 51.1 %) 36 Monocytes (1.7 - 9.3 %) 38 H Absolute Monocytes (0.10 - 0.60 /CUMM) 1.1 H Eosinophils (0 - 5.0 %) 13 H Absolute Eosinophils (0.0 - 0.7 /CUMM) 0.3 Basophils (0.0 - 2.0 %) 1 Absolute Basophils (0.0 - 0.2 /CUMM) 0 Metamyelocytes (0.0 - 1.0 %) 1 Platelet Estimate (ADEQUATE) VERIFIED BY SMEAR Normocytic RBCs VERIFIED Normochromic RBCs VERIFIED Serology Lyme Disease Antibody (RATIO) 0.17 07/17 1208 Serology Babesia microti DNA PCR Pending EBV Capsid Ag IgG Ab Pending EBV Capsid Ag IgM Ab Pending EBV Nuclear Ag IgG Ab Pending EBV Interpretation Pending Assessment/Plan Assessment: Mr. Cannon is a 27-year-old male with history of diarrhea and gastritis who presented to the hospital with diarrhea. He has been having diarrhea for over 10 days with 5-10 bowel movements a day. He has no fever but does have chills. His girlfriend also had similar symptoms but improved. On presentation to the hospital, he was noted to be leukopenic with neutropenia. His other blood work was relatively now. Differentials on the CBC demonstrated a predominant monocyte. Since hospitalization, his counts have improved. ANC remains low. Stool studies have been negative so far. HIV have been negative. His monocyte continues to be higher along with eosinophils. Etiology of leukopenia/neutropenia is unclear at the moment but infectious etiology is the most likely diagnosis. Viral syndrome is high on the differential. Nutritional deficiency is also in the differential given the changes in his diet. Vitamin B12 and folate may influence the WBC. These should be evaluated. Infectious work up is in process at the moment. Hepatitis has not been checked. Lyme is negative. Autoimmune effect is potentially an etiology given his age group. He has not taken new medications recently except for Keflex 4 weeks ago. This is unlikely to cause leukopenia/neutropenia. Malignant process such as leukopenia remains on the differential. Flow cytometry may be sent if persistent leukopenia/neutropenia. At that point, bone marrow would likely be needed. For now, he will be monitored given increasing WBC. Recommendations: Neutropenia: -check vitamin B12 and folate levels -check hepatitis -check TSH -follow up infectious evaluation -follow up MILA -monitor CBC for now -if persisent leukopenia, consider sending for flow cytometry and bone marrow biopsy Diarrhea: -management as per primary and GI Problem List: 1. Neutropenia 2. Diarrhea Other Findings/Comments: Please call [phone] with any questions or concerns Consult Acknowledgment - Thank you for your consult request.
--- NOTE | 2018-07-19 08:12 | PN- Student ---
Ze Perez 07/19/18 0810: Subjective Subjective: Pt was seen and examined in his room this morning. He reports not sleeping well due to multiple episodes of watery diarrhea preceded by severe crampy epigastric and RUQ pain. The pain is relieved with defecation. The pt denies headache, dizziness, syncope, chest pain, dyspnea, dysuria, leg pain, rashes, bruises. Objective Objective: Vital Signs Date Time Temp Pulse Resp B/P B/P Pulse O2 O2 Flow FiO2 Mean Ox Delivery Rate 07/19 0645 99.3 104 16 102/60 97 Room Air 07/18 2056 98.9 66 16 112/80 99 Room Air 07/18 1600 98.6 70 18 118/70 98 Room Air Intake & Output 07/19 1600 07/19 0800 07/19 0000 Intake Total 320 250 Output Total Balance 320 250 Intake, IV 20 10 Intake, Oral 300 240 Physical Exam Gen - NAD, comfortable Psych - appropriately anxious Neuro - AOx4 CV - RRR no MRG Pulm - CTA BL Abd - +BS, soft, nondistended, scaphoid, tender to light palpation in the RUQ and epigastric region, no hepatosplenomegaly Ext - warm and well perfused, radial and PT/DP pulses 2+ BL, +patellar reflexes symmetrical Skin - no rashes or lesions appreciated Assessment/Plan Assessment: Assessment: Mr. Cannon is a 27YO male [place] who grew up in [place]. His PMH is significant for a diagnosis of latent TB for which he did not receive treatment followed by a negative PPD 3-4yrs ago when he started working at [employer]. He received all his childhood vaccines, has an innocent heart murmur, and takes many trips to [facility], most recently in 2016. Fam hx is significant for hereditary spherocytosis and chronic H. pylori infections. Pt presented to the ED 2 days ago with 10 days of nausea and non-bloody, non- mucous diarrhea with 4/10 epigastric pain and increasing weakness. The pt has had these same symptoms intermittently for years and sees Dr. Musa who did an endoscopy and colonoscopy in 2010 which showed normal gastric, intestinal, and colonic mucosa. This time, the pt had been trying pepto-bismal with no relief. He did not take immodium. The pt reports taking a course of kephlex about 1mo ago for a "spider bite" on his R elbow which has completely resolved. The pt feels there is no correlation between the symptoms and taking the antibiotics. On admission, the pt was afebrile and vitally stable. All labs were WNL except WBC which was 1.7 with ANC of 0.4. He recieved 1000mL bolus of NS, percocet and acetaminophen for pain, zofran for nausea, and lovenox for DVT prophy (pt is refusing but is active). Yesterday, WBC is 2.8 and ANC is 0.3. H/H stable. HIV neg. Peripheral smear showed increased # of monocytes. Today, WBC is 3.2 and ANC is 0.6. H/H stable. Lyme titer is neg. Stool studies are neg for Cdiff, giardia, cryptosporidium, and shiga toxin. The pt brought records from [facility] of a colonoscopy he had in 2016 which demonstrated findings consistent with Crohns Disease. We will share these with GI and plan from there. Pt also provided some labs he had done in [facility] in 2011 which included ANCA, CBC, and hepatitis panel. These will be reviewed by heme and GI as well. Problem List/Plan 1. Severe Neutropenia Neutropenia is of unclear etiology at this time but we are pursuing viral causes along with tick panel as pt has hx of "spider bite" 4wks ago and has exposure via his dog. Medications such as keflex are possible, but as the pt has isolated neutropenia this is less likely than an infectious cause. Hematologic malignancy and autoimmune disease are other possibilties. - f/u tick panel - f/u EBV - f/u heme recommendations: hepatitis serology, CRP, MILA with reflex - monitor CBC with differential - as CBC shows WBC and ANC improving, we can potentially safely d/c the patient to home where he can f/u outpatient 2. Diarrhea w/ epigastric pain Pt has hx of intermittent diarrhea similar to this episode which he has experienced over many years. The etiology is unclear but we are suspecting IBD and less likely an infectious cause. Based on colonoscopy results the pt provided from [facility] in 2015 to us today, the etiology seems to be Crohns Disease. This fits the pt's clinical picture. - f/u GI recommendations: lactoferrin, pancreactic elastase, strongiloides, leshmeniasis - improve pain control, recommend acetaminophen PO PRN - f/u GI outpatient if d/c home, likely can d/c on PO prednisone for inducing remission as pt can tolerate PO intake and switch to 5-ASA drug for maintenance along with dietary recommendations Diet: Regular DVT Proph: Ambulation, pt refuses lovenox Code: Full
[2018-07-19 08:35] LABS: ABSOLUTE BASOPHIL COUNT 0 /CUMM (0.0-0.2); ABSOLUTE EOSINOPHIL COUNT 0.3 /CUMM (0.0-0.7); ABSOLUTE GRANULOCYTE CT 0.6 /CUMM (1.4-6.5); ABSOLUTE LYMPH COUNT 0.9 /CUMM (1.2-3.4); ABSOLUTE MONOCYTE COUNT 1.4 /CUMM (0.10-0.60); BASOPHIL % 0.7 % (0.0-2.0); EOSINOPHIL % 8.1 % (0-5); HEMATOCRIT 40.5 % (42-52); MEAN CORPUSCULAR HGB 29.8 PG (27.0-31.0); MEAN CORPUSCULAR HGB CONC 34.3 G/DL (33.0-37.0); MEAN CORPUSCULAR VOLUME 87.1 FL (80.0-94.0); MEAN PLATELET VOLUME 10.7 FL (7.4-10.4); PLATELET COUNT 187 /CUMM (130-400); RBC DISTRIBUTION WIDTH 12.1 % (11.5-14.5); RED BLOOD CELL CT 4.65 /CUMM (4.70-6.10); WHITE BLOOD CELL COUNT 3.2 /CUMM (4.8-10.8)
[2018-07-19 08:55] LABS: GRANULOCYTE % 19.8 % (42.2-75.2)
[2018-07-19 13:48] VITALS: BP 104/60
--- NOTE | 2018-07-19 16:36 | Patient Discharge Instructions ---
Discharge Instructions General Discharge Information You were seen/treated for: Diarrhea Special Instructions: Please follow up with your pcp within 1 week of discharge Please follow up with Dr. Buckley (GI) within 1 week of discharge Please have repeat blood work done with your pcp within 1 week of discharge Acute Coronary Syndrome Inclusion Criteria At DC or during hospital stay patient has or had the following: ACS DIAGNOSIS No Discharge Core Measures Meds if any: Prescribed or Continued at Discharge Meds if any: NOT Prescribed or Continued at Discharge Congestive Heart Failure Inclusion Criteria At DC or during hospital stay patient has or had the following: CHF DIAGNOSIS No Discharge Core Measures Meds if any: Prescribed or Continued at Discharge Meds if any: NOT Prescribed or Continued at Discharge Cerebrovascular accident Inclusion Criteria At DC or during hospital stay patient has or had the following: CVA/TIA Diagnosis No Discharge Core Measures Meds if any: Prescribed or Continued at Discharge Meds if any: NOT Prescribed or Continued at Discharge Venous thromboembolism Inclusion Criteria VTE Diagnosis No VTE Type NONE VTE Confirmed by (Test) NONE Discharge Core Measures - Per Current guidelines, there needs to be overlap - treatment for the first 5 days of Warfarin therapy. - If discharged on Warfarin prior to 5 days of - overlap therapy, the patient will need to be - assessed for post discharge needs including - *Post discharge parental anticoagulation - *Warfarin and/or parental anticoagulation education - *Follow up date to check INR post discharge At least 5 days overlap therapy as Inpatient No Meds if any: Prescribed or Continued at Discharge Note: Overlap Therapy is Warfarin and Anticoagulant Meds if any: NOT Prescribed or Continued at Discharge
[2018-07-19] MEDS ORDERED: ASACOL HD800 M1 PO ×2 (17:30→17:54)
--- NOTE | 2018-07-19 18:04 | Discharge Summary ---
Visit Information Visit Dates Admission Date: 07/16/18 Discharge Date: 07/19/18 Hospital Course Course Attending Physician: Misael Hope MD Primary Care Physician: Rosa Wallis APRN Consulting Request: 1 Consulting Specialty: Hematology/Oncology Consulting Physician: Ashlee Muñoz MDh Reason for Consult: Neutropenia Consulting Request: 2 Consulting Specialty: Gastroenterology Consulting Physician: Loida Buckley MD Reason for Consult: Persistent diarrhea Hospital Course: 27 year old male with PMH GI symptoms s/p endoscopy by Dr. Musa showing nonerosive gastritis in 2010 presenting with 10 day history of nausea and diarrhea. Patient denies any vomiting. He states the diarrhea started all of the sudden and has about 5-10 episodes of non bloody stool per day. He states over the past two days he has experienced increasing fatigue and decided to come to the hospital. Work up in ED found patient to be neutropenic 1.7. He has frequent travels to [facility]. His WBC count right this morning to 3.2, with ANC of 0.6. Neutropenia: possible secondary to tick borne illness as patient had unknown ' bite' to Right elbow with rash 4 weeks ago vs HIV infection, we have to rule out infections that can cause neutropenia including Shaggy-Matos virus, HIV-ruled out, anaplasmosis, HTLV-not common in this area, parvovirus, Babesia, A. phagocytophilum,. Blood culture was negative after 1 day. WBC: 1.7---2.6---2.8---3.2 ANC: 0.4---0.5---0.3---0.6 Plan: neutropenic precautions, tick panel, HIV-ruled out, continue to monitor, hepatitis panel, folic acid, vitamin B12, hematology consult appreciated. Diarrhea: infectious vs viral, strongyloidosis, Leishmaniosis, GI consult appreciated. Plan: stool ova/parasite, C-diff antigen was negative, sent for PCR, IV fluid hydration Allergies: Coded Allergies: lactose (LACTOSE INTOLERANT 07/16/18) Disposition Summary Disposition Principal Diagnosis: Persistent diarrhea Neutropenia Additional Diagnosis: None Discharge Disposition: home or self care Discharge Instructions General Discharge Information Code Status: Full Code Patient's Diet: Regular Patient's Activity: As tolerated Follow-Up Instructions/Appts: Please follow up with your pcp within 1 week of discharge Please follow up with Dr. Buckley (GI) within 1 week of discharge Please have repeat blood work done with your pcp within 1 week of discharge Medications at Discharge Discharge Medications: Start taking the following new medications: Mesalamine (Asacol Hd) 800 MG TABLET. 1 Tablet ORAL THREE TIMES DAILY Qty = 90 No Refills Instructions: Please take as directed and follow up with your GI doctor. Comments: NOT GIVEN IN HOSPITAL Copies To: Rosa Wallis APRN
[2018-07-20 00:07] LABS: C.DIFFICILE TOXIN B QL PCR NOT DETECTED (NOT DETECTED)
== END 2018-07-19 18:08 | DRG 810 ==
LOC: ERH 14:02 → ERHI 18:19 → 2NB 18:19 → ENRESERV 19:07 → ENTRNSPT 19:32 → EDTRNSPTSTS 19:37 → 2NB 19:43 → CMPTRNSPT 20:04 → 2NB 07-18 08:05
PROVIDERS: Hospitalist; Internal Medicine; Student in an Organized Health Care Education/Training Program
DX: D70.9 Neutropenia, unspecified (principal); R19.7 Diarrhea, unspecified; D72.1 Eosinophilia; K21.9 Gastro-esophageal reflux disease without esophagitis; K27.9 Peptic ulcer, site unspecified, unspecified as acute or chronic, without hemorrhage or perforation
CPT/HCPCS: 2NBP; 86618; 86666; 87493; 36592; 82436; 83630; 87015; 87040; 87045; 87328; 87329; 87389; 87798; 87899; 87899-59; 96374; J1650; J2405